=== PATIENT | female | born 1995 | race African-American/Black ===

== ENCOUNTER 2017-08-10 05:58 | Outpatient (CLI) | payer BC, OTHER ==
[~2017-08-10] VITALS: Ht 154.9 cm; Wt 65.9 kg
[2017-08-10 07:04] LABS: BASOPHILS 0.3 % (0-2); EOSINOPHILS 0.5 % (0-7); HEMATOCRIT 35.4 % (36.0-48.0); HEMOGLOBIN 11.3 g/dL (12-16); IMMATURE GRANULOCYTES 0.5 % (0-5); LYMPHOCYTES 36.5 % (15-50); MCH 28.3 pg (26.0-34.0); MCHC 31.9 g/dL (31.0-37.0); MCV 88.5 fL (80.0-100.0); MEAN PLATELET VOLUME 9.7 fL (7.4-10.4); MONOCYTES 10.4 % (2-11); NEUTROPHILS 51.8 % (40-80); PLATELET COUNT 273 10x3/uL (130-400); RDW 14.5 % (11.5-14.5); WBC 5.9 10x3/uL (4.8-10.8)
[2017-08-10 07:09] VITALS: BP 123/67; Ht 154.9 cm; Wt 65.9 kg
[2017-08-10 07:13] LABS: APTT 24.2 SECONDS (22.8-39.4); INR 1.02 (0.85-1.17)
[2017-08-10 07:15] LABS: CALC OSMOLALITY 276 mosm/kg (275-300); CALCIUM 9.2 mg/dL (8.5-10.1); CHLORIDE - SERUM 103 mmol/L (98-107); CREATININE - SERUM 0.8 mg/dL (0.6-1.3); GLUCOSE 78 mg/dL (74-106); SODIUM 140 mmol/L (136-145); UREA NITROGEN 11 mg/dL (7-18); eGFR NON AFRICAN AMERICAN > 90 mL/min (90-120)
[2017-08-10 08:47] LABS: HCG SERUM NEGATIVE (NEGATIVE)
== END 2017-08-10 13:00 | disposition home or self-care (01) ==
LOC: D.SP 05:58
PROVIDERS: Internal Medicine Gastroenterology; Radiology Diagnostic Radiology
DX: R74.8 Abnormal levels of other serum enzymes (principal); Z01.812 Encounter for preprocedural laboratory examination; D64.9 Anemia, unspecified; R10.84 Generalized abdominal pain

== ENCOUNTER → 2017-08-15 12:57 | Outpatient (CLI) | payer BC, OTHER ==
[2017-08-10 07:09] VITALS: BMI 27.4
[2017-08-16 06:16] LABS: EBV - EARLY ANTIGEN AB IGG <9.0 U/mL (0.0-8.9); EBV - NUCLEAR ANTIGEN AB IGG >600.0 U/mL (0.0-17.9); EBV VIRAL CAPSID AB IGG 82.7 U/mL (0.0-17.9); EBV VIRAL CAPSID AB IGM <36.0 U/mL (0.0-35.9)
[2017-08-16 09:18] LABS: HEPATITIS C ANTIBODY <0.1 (0.0-0.9)
[2017-08-16 14:24] LABS: CYTOMEGALOVIRUS AB IGG <0.60 U/mL (0.00-0.59)
== END | disposition home or self-care (01) ==
LOC: D.LAB 12:57
PROVIDERS: Internal Medicine Gastroenterology
DX: R79.89 Other specified abnormal findings of blood chemistry (principal)

== ENCOUNTER → 2017-08-30 08:04 | Outpatient (CLI) | payer BC, OTHER ==
[2017-08-10 07:09] VITALS: BMI 27.4
== END | disposition home or self-care (01) ==
LOC: D.US 08:04
DX: R10.9 Unspecified abdominal pain (principal); M25.511 Pain in right shoulder; R11.0 Nausea

== ENCOUNTER → 2017-11-12 14:41 | Outpatient (CLI) | payer BC, OTHER ==
[2017-08-10 07:09] VITALS: BMI 27.4
[2017-11-12 15:02] LABS: BASOPHILS 0.4 % (0-2); EOSINOPHILS 3.3 % (0-7); HEMATOCRIT 34.1 % (36.0-48.0); IMMATURE GRANULOCYTES 0.4 % (0-5); LYMPHOCYTES 32.8 % (15-50); MCH 28.4 pg (26.0-34.0); MCHC 32.3 g/dL (31.0-37.0); MCV 88.1 fL (80.0-100.0); MEAN PLATELET VOLUME 9.2 fL (7.4-10.4); MONOCYTES 8.2 % (2-11); NEUTROPHILS 54.9 % (40-80); PLATELET COUNT 320 10x3/uL (130-400); RBC 3.87 10x6/uL (4.00-5.40); RDW 13.8 % (11.5-14.5); WBC 5.5 10x3/uL (4.8-10.8)
== END | disposition home or self-care (01) ==
LOC: D.LAB 14:41
DX: R10.9 Unspecified abdominal pain (principal)